=== PATIENT | female | born 1990 | race Caucasian/White ===

== ENCOUNTER → 2017-04-06 | Outpatient (CLI) | payer OTHER ==
[~2017-04-06] VITALS: Ht 177.8 cm; Wt 105.0 kg
[~2017-04-06] MED LIST: ENDOCET 5-3251 EACH PO; IBUPROFEN800 MG PO; PRENATAL VITAM1 EAC1 PO
[2017-04-06 08:06] VITALS: BP 141/70
== END | disposition home or self-care (01) ==
LOC: IVINF 07:59
DX: Z31.82 Encounter for Rh incompatibility status (principal)
CPT/HCPCS: 96372; J2790

== ENCOUNTER 2017-06-22 20:21 | Outpatient (CLI) | payer OTHER ==
[~2017-06-22] VITALS: Ht 177.8 cm; Wt 117.0 kg
[2017-06-22 20:57] VITALS: BP 130/85
[2017-06-22 21:28] VITALS: BP 123/83
[2017-06-23] MEDS ORDERED: TYLENOL EXTRA500 MG PO (02:06)
[2017-06-23] MEDS ORDERED: BENADRYL25 MG PO (02:07)
== END 2017-06-22 21:35 | disposition home or self-care (01) ==
LOC: LDRP-OP → 2WEST 20:23 → LDRP-OP 07-23 13:57
DX: O47.1 False labor at or after 37 completed weeks of gestation (principal); Z3A.38 38 weeks gestation of pregnancy
CPT/HCPCS: 59025; G0378

== ENCOUNTER 2017-06-23 01:03 | Inpatient (IN) | payer OTHER ==
[~2017-06-23] VITALS: Ht 177.8 cm; Wt 117.0 kg
[2017-06-23] VITALS (9 sets, daily range): BP systolic 113–160; BP diastolic 57–94
[2017-06-23] MEDS ORDERED: TYLENOL EXTRA500 MG PO (02:06)
[2017-06-23] MEDS ORDERED: BENADRYL25 MG PO (02:07)
[2017-06-23 02:15] LABS: EOSINOPHIL (%) 0.5 % (0-5); EOSINOPHIL COUNT 0.1 K/uL (0-0.3); HEMATOCRIT 34.9 % (36.0-46.0); IMMATURE GRANULOCYTE (%) 1.3 % (0.0-0.7); IMMATURE GRANULOCYTE COUNT 0.2 K/uL; LYMPHOCYTE COUNT 1.8 K/uL (1.0-2.8); MCH 27.1 PG (29.0-34.0); MCHC 32.1 G/DL (30.0-36.0); MCV 84.3 FL (83-99); MEAN PLAT.VOLUME 9.8 uM^3 (9.5-12.4); MONOCYTE (%) 5.2 % (3-12); MONOCYTE COUNT 0.7 K/uL (0-0.8); NEUTROPHIL (%) 78.4 % (45-76); PLATELET COUNT 225 K/uL (156-360); RBC DIS.WIDTH-CV 13.7 % (11.8-14.6); RBC DIS.WIDTH-SD 41.7 % (39-53); RED BLOOD COUNT 4.14 M/uL (3.80-5.20); WHITE BLOOD COUNT 12.8 K/uL (4.1-10.2)
[2017-06-24 06:24] LABS: EOSINOPHIL (%) 1.4 % (0-5); EOSINOPHIL COUNT 0.2 K/uL (0-0.3); IMMATURE GRANULOCYTE (%) 1.4 % (0.0-0.7); IMMATURE GRANULOCYTE COUNT 0.2 K/uL; INSTRUMENT ABS NEUTROPHIL CT 7.7 K/uL; LYMPHOCYTE COUNT 2.9 K/uL (1.0-2.8); MCH 28.7 PG (29.0-34.0); MCHC 33.4 G/DL (30.0-36.0); MCV 85.8 FL (83-99); MEAN PLAT.VOLUME 10.1 uM^3 (9.5-12.4); MONOCYTE (%) 6.4 % (3-12); MONOCYTE COUNT 0.7 K/uL (0-0.8); NEUTROPHIL (%) 65.7 % (45-76); NEUTROPHIL COUNT 7.7 K/uL (1.8-6.4); PLATELET COUNT 223 K/uL (156-360); RBC DIS.WIDTH-CV 14.1 % (11.8-14.6); RBC DIS.WIDTH-SD 43.3 % (39-53); RED BLOOD COUNT 3.38 M/uL (3.80-5.20); WHITE BLOOD COUNT 11.6 K/uL (4.1-10.2)
[2017-06-24 09:22] VITALS: BP 130/86
== END 2017-06-24 13:04 | disposition home or self-care (01) | DRG 775 ==
LOC: LDRP-OP 01:03 → 2WEST 01:04 → LDRP-OP 07-23 22:15
PROVIDERS: Advanced Practice Midwife
DX: O70.0 First degree perineal laceration during delivery (principal); O99.02 Anemia complicating childbirth; D62 Acute posthemorrhagic anemia; O99.214 Obesity complicating childbirth; E66.9 Obesity, unspecified; Z68.32 Body mass index [BMI] 32.0-32.9, adult; O22.43 Hemorrhoids in pregnancy, third trimester; O26.893 Other specified pregnancy related conditions, third trimester; Z67.11 Type A blood, Rh negative; Z37.0 Single live birth; Z3A.39 39 weeks gestation of pregnancy; Z85.820 Personal history of malignant melanoma of skin
CPT/HCPCS: 83030; 85025; 86870; 86900; 86901; 86905; J2590; J2790; J7120